=== PATIENT | female | born 1945 | race Caucasian/White ===

== ENCOUNTER → 2018-05-19 | Outpatient (CLI) | payer MEDICARE ==
[~2018-05-19] MED LIST: ALBU8.5H8 PO; DULO30CA2 PO; GABA600T2 PO; HYDR-3245 PO; LEVO112T4 PO; METH1TAB21 PO; MORPHINE PO; TRAZ50TA18 PO
[2018-05-19 13:07] LABS: EOSINOPHILS # (AUTO) 0.27 x10^3/uL (0-0.4); MD NO; MONOCYTES # (AUTO) 0.44 x10^3/uL (0.2-0.8)
[2018-05-19 13:12] LABS: INTERNATIONAL NORMALIZED RATIO 0.96 (0.93-1.1)
[2018-05-19 13:16] LABS: HEMOGLOBIN A1C 5.1 % (4.2-6.3)
[2018-05-19 13:49] LABS: ANION GAP 7 mmol/L (5-15); CALCIUM 8.6 mg/dL (8.5-10.1); CHLORIDE 103 mmol/L (98-107); CREATININE 0.92 mg/dL (0.55-1.02)
[2018-05-19 15:11] LABS: BASOPHILS # (AUTO) 0.06 x10^3/uL (0-0.1); BASOPHILS % (AUTO) 1 % (0-1); EOSINOPHILS % (AUTO) 5 % (1-7); LYMPHOCYTES # (AUTO) 1.48 x10^3/uL (1-3.4); LYMPHOCYTES % (AUTO) 26 % (22-44); MEAN CORPUSCULAR HEMOGLOBIN 30.3 pg (27.0-34.8); MEAN CORPUSCULAR HGB CONC 32.7 g/dL (32.4-35.8); MEAN CORPUSCULAR VOLUME 92.7 fL (80-100); MEAN PLATELET VOLUME 8.1 fL (7.4-10.4); MONOCYTES % (AUTO) 8 % (2-9); NEUTROPHILS # (AUTO) 3.39 x10^3/uL (1.8-6.8); NEUTROPHILS % (AUTO) 60 % (42-75); PLATELET COUNT 234 x10^3/uL (130-400); RED BLOOD COUNT 4.16 x10^6/uL (3.82-5.3); RED CELL DISTRIBUTION WIDTH 13.6 % (9.6-15.2)
== END | disposition home or self-care (01) ==
LOC: STAR 11:43
PROVIDERS: ATTEND Orthopaedic Surgery
DX: M25.562 Pain in left knee (principal); M17.12 Unilateral primary osteoarthritis, left knee; I44.0 Atrioventricular block, first degree
CPT/HCPCS: 36415; 80048; 83036; 85025; 85610; 85730; 87081; 87806; 93005; G0475

== ENCOUNTER 2018-06-05 06:06 | Observation (INO) | payer MEDICARE ==
[~2018-06-05] VITALS: Ht 162.6 cm; Wt 58.8 kg
[~2018-06-05 06:06] MED LIST changes: +TRAZ-136 PO; -TRAZ50TA18 PO
[2018-06-05] MEDS ORDERED: VANCOMYCIN PER PHARMACY MC PRN (06:30)
[2018-06-05] MEDS: LACTATED RINGERS 1,000 ML IV SCH ×2 (07:12→12:33)
[2018-06-05] MEDS ORDERED: KETOROLAC 60 MG/2 ML ONE (07:17)
[2018-06-05] MEDS ORDERED: TRANEXAMIC ACID 100 MG/ML, 10ML ONE ×4 (07:17)
[2018-06-05] MEDS ORDERED: EPINEPHRINE 1 MG/ML, 1ML ONE (07:18)
[2018-06-05] MEDS ORDERED: ROPIvacaine/PF 0.2%, 20 ML ONE (07:18)
[2018-06-05] MEDS ORDERED: LIDOCAINE-MPF 1%, 2ML INFIL ONE (07:30)
[2018-06-05] MEDS ORDERED: ACETAMINOPHEN 500 MG TABLET PO ONE (07:30)
[2018-06-05] MEDS ORDERED: FENTANYL PF 250 MCG/5ML ONE (07:38)
[2018-06-05] MEDS ORDERED: MIDAZOLAM 1 MG/ML, 2ML ONE (07:38)
[2018-06-05] MEDS ORDERED: PROPOFOL 10 MG/ML, 20ML ONE (07:39)
[2018-06-05] MEDS ORDERED: ROCURONIUM 10MG/ML,5ML ONE (07:40)
[2018-06-05] MEDS ORDERED: GLYCOPYRROLATE 0.4 MG/2 ML, 2ML ONE (07:42)
[2018-06-05] MEDS ORDERED: NEOSTIGMINE 1 MG/ML, 10ML ONE (07:42)
[2018-06-05] MEDS: VANCOMYCIN 1,100 MG in SODIUM CHLORIDE 0.9% 250 ML IV ONE ×2 (07:42→09:00)
[2018-06-05] MEDS ORDERED: WATER-INJECTION,STERILE 10 ML IV ONE (07:43)
[2018-06-05] MEDS ORDERED: CEFAZOLIN 1,000 MG ONE ×2 (07:43)
[2018-06-05] MEDS ORDERED: DEXAMETHASONE 4 MG/ML, 1ML ONE ×2 (07:45)
[2018-06-05] MEDS ORDERED: ONDANSETRON ODT 8 MG PO ONE (08:00)
[2018-06-05] MEDS ORDERED: OxyconTIN ER 10 MG TAB.ER PO ONE (08:00)
[2018-06-05] MEDS ORDERED: MEPERIDINE/PF 25MG/0.5ML IVPush PRN (08:30)
[2018-06-05] MEDS ORDERED: ONDANSETRON 2MG/ML, 2ML IV PRN ×2 (08:30→11:00)
[2018-06-05] MEDS ORDERED: LABETALOL 5MG/ML, 20ML IV PRN (08:30)
[2018-06-05] MEDS ORDERED: OXYcodone 5 MG/5 ML ORAL.SOL UDC PO PRN (08:30)
[2018-06-05] MEDS ORDERED: HYDROmorphone 1 MG/ML, 1ML IV PRN ×2 (08:30→11:00)
[2018-06-05] MEDS ORDERED: ONDANSETRON ODT 8 MG PO PRN (08:30)
[2018-06-05] MEDS ORDERED: hydrALAzine 20 MG/ML, 1ML IV PRN (08:30)
[2018-06-05] MEDS ORDERED: PROMETHAZINE 25 MG SUPP PR PRN (08:30)
[2018-06-05] MEDS ORDERED: PROMETHAZINE 25 MG/ML, 1ML IV PRN (08:30)
[2018-06-05] MEDS ORDERED: ALBUTEROL SULFATE 2.5 MG/3 ML NPPB PRN ×2 (08:30→13:00)
[2018-06-05] MEDS ORDERED: MORPHINE SULFATE 4 MG/ML, 1ML IVPush PRN (08:30)
[2018-06-05] MEDS ORDERED: ONDANSETRON 2MG/ML, 2ML ONE (09:57)
[2018-06-05] MEDS ORDERED: D5%-0.45NACL+KCL 20MEQ 1,000 ML IV SCH (10:59)
[2018-06-05] MEDS ORDERED: TRANEXAMIC ACID 1,000 MG in SODIUM CHLORIDE 0.9% 100 ML IVPB ONE (11:00)
[2018-06-05] MEDS ORDERED: ACETAMINOPHEN 650 MG/20.3 ML UDC PO PRN (11:00)
[2018-06-05] MEDS ORDERED: PROMETHAZINE 12.5 MG SUPP PR PRN (11:00)
[2018-06-05] MEDS ORDERED: SENNA/DOCUSATE TABLET PO PRN (11:00)
[2018-06-05] MEDS ORDERED: MAGNESIUM HYDROXIDE 8%, 30ML UDC PO PRN (11:00)
[2018-06-05] MEDS ORDERED: OXYcodone IR 5MG TABLET PO PRN (11:00)
[2018-06-05] MEDS ORDERED: DIPHENHYDRAMINE 50 MG CAPSULE PO PRN (11:00)
[2018-06-05] MEDS ORDERED: ALUMINUM/MAG/SIMETHICONE 30 ML UDC PO PRN (11:00)
[2018-06-05] MEDS ORDERED: PROMETHAZINE 25 MG/ML, 1ML IM PRN (11:00)
[2018-06-05] MEDS ORDERED: BISACODYL 10 MG SUPP PR PRN (11:00)
[2018-06-05] MEDS ORDERED: ONDANSETRON 4 MG TABLET PO PRN (11:00)
[2018-06-05] MEDS ORDERED: FENTANYL PF 100 MCG/2ML ONE (11:18)
[2018-06-05] MEDS ORDERED: HYDROmorphone 2 MG/ML, 1ML ONE (11:18)
[2018-06-05] MEDS ORDERED: OXYcodone 5 MG/5 ML ORAL.SOL UDC ONE (11:18)
[2018-06-05] MEDS: FENTANYL PF 100 MCG/2ML IV PRN ×2 (11:20→11:38)
[2018-06-05] MEDS ORDERED: GABAPENTIN 300 MG CAPSULE PO SCH (16:00)
[2018-06-05] MEDS ORDERED: CEFAZOLIN PMX 1GM/50ML 50 ML IVPB SCH (17:00)
[2018-06-05] MEDS ORDERED: ASPIRIN 81 MG TABLET EC PO SCH (18:00)
[2018-06-05] MEDS ORDERED: ASPI-496 PO (18:42)
[2018-06-05] MEDS ORDERED: DOCU-131 PO (18:43)
[2018-06-05] MEDS ORDERED: ONDA4TAB10 PO (18:44)
[2018-06-05] MEDS ORDERED: CELE200C PO (18:45)
[2018-06-05 19:16] VITALS: BP 154/73
[2018-06-05] MEDS ORDERED: DOCUSATE 100 MG CAPSULE PO SCH (21:00)
[2018-06-05] MEDS ORDERED: VANCOMYCIN PMX 1GM/200ML 200 ML IVPB SCH (21:00)
[2018-06-05] MEDS ORDERED: TRAZODONE 50MG TABLET PO SCH (21:00)
[2018-06-06] MEDS ORDERED: DEXAMETHASONE 4 MG/ML, 1ML IVPush SCH (06:00)
[2018-06-06] MEDS ORDERED: LEVOTHYROXINE 112 MCG TABLET PO SCH (06:00)
[2018-06-06] MEDS ORDERED: DULOXETINE 30 MG CAPSULE.DR PO SCH (09:00)
[2018-06-06] MEDS ORDERED: TAMSULOSIN 0.4 MG CAP.ER.24H PO SCH (09:00)
[2018-06-06] MEDS ORDERED: METHENAMINE HIPPURATE 1 GM TABLET PO SCH (09:00)
[2018-06-06] MEDS ORDERED: KETOROLAC 30 MG/1 ML IV SCH (11:00)
== END 2018-06-05 20:33 | disposition home or self-care (01) ==
LOC: OUT 06:06 → ORIP 10:59 → 4NOR 12:08
PROVIDERS: ADMIT Orthopaedic Surgery; ATTEND Orthopaedic Surgery
DX: M17.12 Unilateral primary osteoarthritis, left knee (principal)
CPT/HCPCS: 27447; 73560; 96365; C1713; C1776; G0378; J0171; J0690; J1100; J1885; J2250; J2405; J2704; J2710; J2795; J3010; J3370; J3480; J7050; J7120; Q0162